=== PATIENT | female | born 1950 | race Caucasian/White ===

== ENCOUNTER 2017-11-01 12:35 | Inpatient (IN) | payer MEDICARE, BC, OTHER ==
[~2017-11-01] VITALS: Ht 170.2 cm; Wt 75.7 kg
[2017-11-01 12:36] VITALS: BP 127/34
[2017-11-01] MEDS ORDERED: PRINZIDE 20-251 EACH PO (12:45)
[2017-11-01] MEDS ORDERED: ADVAIR HFA 230M12 GM INH (12:45)
[2017-11-01] MEDS ORDERED: LIPITOR 20 MG T20 M1 PO (12:45)
[2017-11-01] MEDS ORDERED: BUDESONIDE PO (12:46)
[2017-11-01] MEDS ORDERED: APRISO0.375 GM PO (12:46)
[2017-11-01 13:15] LABS: HEMATOCRIT 38.4 % (37.0-47.0); HEMOGLOBIN 12.8 gm/dL (12.0-15.0); MCH 31.1 pg (26.0-34.0); MCHC 33.4 g/dL (28.0-37.0); MCV 93.1 fL (80.0-100.0); MPV 7.8 fl. (7.2-11.1); NUCLEATED RBCS 0 /100WBC; PLATELET COUNT* 183 thou/uL (150-400); RBC 4.13 mil/uL (4.20-5.00); RDW-CV 13.1 % (10.5-14.5)
[2017-11-01 13:24] LABS: ANION GAP 8 mmol/L (7-16); BUN 20 mg/dL (7-18); CHLORIDE 97 mmol/L (98-107); CO2 29 mmol/L (21-32); CREATININE 0.8 mg/dL (0.6-1.3); GLUCOSE 110 mg/dL (70-99); POTASSIUM 3.3 mmol/L (3.5-5.1); SODIUM 134 mmol/L (136-145)
[2017-11-01 13:29] LABS: APTT 22.6 Seconds (25.0-31.3); PROTIME 10.2 Seconds (9.20-11.50)
[2017-11-01 13:30] LABS: ALKALINE PHOSPHATASE 69 U/L (46-116); LIPASE 148 U/L (73-393); SGOT 26 U/L (15-37); SGPT 32 U/L (30-65); TOTAL BILIRUBIN 0.4 mg/dL (<0.1-1.0); TOTAL PROTEIN 7.6 g/dL (6.4-8.2); TROPONIN-I LEVEL <0.06 ng/mL (<0.06)
[2017-11-01 14:04] LABS: ABSOLUTE LYMPHOCYTES 0.4 thou/uL (0.8-5.3); ABSOLUTE MONOCYTES 0.4 thou/uL (0.0-1.2); ABSOLUTE NEUTROPHILS 13.2 thou/uL (1.6-8.1); PLATELET ESTIMATE ADEQUATE
[2017-11-01 14:15] LABS: URINE BILIRUBIN NEGATIVE (Negative); URINE BLOOD NEGATIVE (Negative); URINE CLARITY CLEAR; URINE COLOR YELLOW; URINE GLUCOSE-RANDOM NEGATIVE (Negative); URINE KETONES TRACE (Negative); URINE LEUKOCYTES-REFLEX NEGATIVE (Negative); URINE NITRITE-REFLEX NEGATIVE (Negative); URINE PROTEIN NEGATIVE (Negative); URINE UROBILINOGEN 0.2 E.U./dl (0.2-1.0)
[2017-11-01 14:56] VITALS: BP 127/82
--- NOTE | 2017-11-01 15:17 | EKG ---
[place] [address] ELECTROCARDIOGRAM REPORT Name: BRENDAN HART Room: [address] IN .R.#: [id number] Admission: 11/01/17 Attend Phys: Phu Figueroa Discharge: Date of : 46 Report #: [id number] THIS REPORT FOR: //name// [facility] ED Test Date: 2017-11-01 Test Time: 12:45:04 Pat Name: BRENDAN HART Department: Room: Gender: F Hitch Technician: Bela GOLDSTEIN : 1950 Requested By: Sebastian Putnam Order Number: [id number] MD: Jalil Schmidt Measurements Intervals [place] Rate: 64 P: 30 [place]: 196 QRS: 32 QRSD: 111 T: 11 QT: 424 QTc: 438 Interpretive Statements Sinus rhythm RSR' in V1 or V2, probably normal variant No previous ECG available for comparison Electronically Signed On 11-01-2017 15:17:17 CDT by Jalil Schmidt [email or web address] <ELECTRONICALLY SIGNED> By: Jalil Schmidt MD, [facility] 11/01/17 1517 1245 1245 Jalil Schmidt MD, [facility] /EPI
[2017-11-01] MEDS ORDERED: ARMOUR THYROID60 M1 PO (15:39)
[2017-11-01 16:05] VITALS: BP 134/79
--- NOTE | 2017-11-01 16:14 | 2DMMODE ---
[place] [address] 2 D/M-MODE ECHOCARDIOGRAM Name: BRENDAN HART Room: [address] IN [facility]#: [id number] Admission: 11/01/17 Attend Phys: Harrison Swann Discharge: Date of : 46 Date of Service: 11/01/17 1614 Report #: [id number] THIS REPORT FOR: //name// APPROVED REPORT Study performed: 11/01/2017 15:38:34 EXAM: Comprehensive 2D, Doppler, and color-flow Echocardiogram Patient Location: In-Patient Room #: 219 Status: routine BSA: 1.87 HR: 75 bpm BP: 127/34 mmHg Rhythm: NSR Other Information Study Quality: Good Indications Syncope 2D Dimensions LVEF(%): 77.29 (>50%) IVSd: 11.74 (7-11mm) LVOT Diam: 20.19 (18-24mm) LVDd: 47.40 mm PWd: 10.79 (7-11mm) Ascending Ao: 32.04 (22-36mm) LVDs: 25.61 (25-40mm) Aortic Root: 32.93 mm Cohen's LVEF: 77.29 % Volumes Left Atrial Volume (Systole) LA ESV Index: 37.80 mL/m2 Aortic Valve AoV Peak Boyd.: 1.97 m/s AO Peak Gr.: 15.58 mmHg LVOT Max P.94 mmHg AO Mean Gr.: 7.91 mmHg LVOT Mean P.63 mmHg LVOT Max V: 1.58 m/s AO V2 VTI: 36.50 cm LVOT Mean V: 0.97 m/s CLAUDIO (VTI): 2.72 cm2 LVOT V1 VTI: 31.04 cm Mitral Valve E/A Ratio: 0.82 [place] [address] 2 D/M-MODE ECHOCARDIOGRAM Name: BRENDAN HART Room: [address] IN .R.#: [id number] Admission: 11/01/17 Attend Phys: Harrison Swann Discharge: Date of : 46 Date of Service: 11/01/17 1614 Report #: [id number] MV Decel. Time: 271.42 ms MV E Max Body.: 0.79 m/s MV PHT: 78.71 ms MVA (PHT): 2.79 cm2 TDI E/Lateral E': 5.27 E/Medial E': 8.78 Medial E' Boyd.: 0.09 m/s Lateral E' Boyd.: 0.15 m/s Pulmonary Valve PV Peak Boyd.: 1.05 m/s PV Peak Gr.: 4.39 mmHg Tricuspid Valve TR Peak Gr.: 19.47 mmHg RVSP: 24.00 mmHg Left Ventricle The left ventricle is normal size. There is normal LV segmental wall motion. There is normal left ventricular wall thickness. Left ventricular systolic function is normal. The left ventricular ejection fraction is within the normal range. LVEF is 55-60%. Grade I - abnormal relaxation pattern. Right Ventricle The right ventricle is normal size. The right ventricular systolic function is normal. Atria Left atrium is mildly dilated. The right atrium size is normal. Aortic Valve The aortic valve is normal in structure. No aortic regurgitation is present. There is no aortic valvular stenosis. Mitral Valve The mitral valve is normal in structure. Trace mitral regurgitation. No evidence of mitral valve stenosis. Tricuspid Valve The tricuspid valve is normal in structure. Trace tricuspid regurgitation. The RVSP is ___24____ mmHg. Pulmonic Valve The pulmonary valve is normal in structure. Trace [place] [address] 2 D/M-MODE ECHOCARDIOGRAM Name: BRENDAN HART Room: [address] IN .R.#: [id number] Admission: 11/01/17 Attend Phys: Harrison Swann Discharge: Date of : 46 Date of Service: 11/01/17 1614 Report #: [id number] Great Vessels The aortic root is normal in size. IVC is normal in size and collapses with >50% inspiration Pericardium There is no pericardial effusion. <Conclusion> LVEF is 55-60%. There is normal LV segmental wall motion. Grade I - abnormal relaxation pattern. Left atrium is mildly dilated. No aortic regurgitation is present. There is no aortic valvular stenosis. Trace mitral regurgitation. <ELECTRONICALLY SIGNED> By: Jalil Schmidt MD, FACC 11/01/17 1614 1614 1614 Jalil Schmidt MD, FACC /INF
[2017-11-01 19:30] VITALS: BP 100/58
[2017-11-01 23:40] VITALS: BP 94/56
[2017-11-02 03:29] VITALS: BP 120/74
[2017-11-02 08:00] VITALS: BP 118/74
[2017-11-02] MEDS ORDERED: FLONASE 0.05%50 MCG NASAL (09:36)
[2017-11-02 11:30] VITALS: BP 116/70
[2017-11-02] MEDS ORDERED: ASPIR 8181 MG PO (14:14)
[2017-11-02 14:19] VITALS: BP 118/74
[2017-11-02 14:28] VITALS: BP 118/74
--- NOTE | 2017-11-15 11:58 | EEG ---
[address] [address] EEG STUDY REPORT Name: BRENDAN HART Room: [address] IN M.R.#: [id number] Admission: 11/01/17 Attend Phys: Phu Figueroa Discharge: 11/02/17 Date of : 46 Report #: [id number] THIS REPORT FOR: //name// CC: Tor Swann DO HISTORY: The patient is a 66-year-old female who presents with a syncopal episode. An EEG is requested for further evaluation. DESCRIPTION: The awake record consists of symmetric moderate amplitude 9 cycles per second posterior dominant rhythm, which attenuates with eye opening. Stage I sleep was characterized by attenuation of the background record. No focal abnormalities or epileptiform discharges were noted. Photic stimulation was nonactivating. IMPRESSION: This is a normal adult awake to stage I sleep record. No focal abnormalities or epileptiform discharges are noted. <ELECTRONICALLY SIGNED> By: Amanda Lopez DO 11/15/17 1158 1522 1535Amanda Lopez DO /nt
== END 2017-11-02 15:49 | disposition home or self-care (01) | DRG 314 ==
LOC: M.ERS 12:35 → M.2W 13:57 → M.TBA-ER 13:57 → M.2W 15:05
PROVIDERS: Family Medicine; ADMIT Internal Medicine
DX: I95.9 Hypotension, unspecified (principal); G93.40 Encephalopathy, unspecified; I50.32 Chronic diastolic (congestive) heart failure; R55 Syncope and collapse; I10 Essential (primary) hypertension; E78.5 Hyperlipidemia, unspecified; K52.832 Lymphocytic colitis; E07.9 Disorder of thyroid, unspecified; E78.00 Pure hypercholesterolemia, unspecified; Z88.6 Allergy status to analgesic agent; Z88.0 Allergy status to penicillin; Z88.2 Allergy status to sulfonamides; Z79.899 Other long term (current) drug therapy